=== PATIENT | female | born 1970 | race Hispanic/Latino ===

== ENCOUNTER 2017-11-30 10:02 | Outpatient (RCR) | payer BC ==
[~2017-11-30 10:02] MED LIST: DOXYCYCLINE HY100 MG PO; RISPERDAL0.25 MG PO
== END 2017-12-01 ==
LOC: PT 10:02
PROVIDERS: ATTEND Specialist
DX: S46.022D Laceration of muscle(s) and tendon(s) of the rotator cuff of left shoulder, subsequent encounter (principal); S46.021D Laceration of muscle(s) and tendon(s) of the rotator cuff of right shoulder, subsequent encounter; M25.512 Pain in left shoulder; M25.511 Pain in right shoulder; M62.81 Muscle weakness (generalized)

== ENCOUNTER 2017-12-08 08:58 | Outpatient (RCR) | payer BC | END 2018-01-01 | LOC: PT 08:58 | PROVIDERS: ATTEND Specialist | DX: S46.022A Laceration of muscle(s) and tendon(s) of the rotator cuff of left shoulder, initial encounter (principal); S46.021A Laceration of muscle(s) and tendon(s) of the rotator cuff of right shoulder, initial encounter ==

== ENCOUNTER 2018-07-18 07:36 | Emergency (ER) | payer BC ==
[~2018-07-18] VITALS: Ht 165.1 cm; Wt 77.1 kg
--- NOTE | 2018-07-18 08:18 | Diagnostic Imaging Report ---
PROCEDURE:ANKLE 3VIEW LT - HOPD COMPARISON:None. INDICATIONS:pt twisted ankle/foot exercising FINDINGS: No acute, displaced fracture or dislocation. Tibial plafond and talar dome are intact. Ankle mortise is maintained. Fragment along the medial malleolus may represent a remote avulsion injury. There is a healed fracture deformity of the distal tibial diaphysis.. Degenerative plantar calcaneal spur. No focal soft tissue abnormalities. CONCLUSION: Posttraumatic changes of the distal tibial diaphysis and medial malleolus. No acute osseous abnormality. Dictated by: Chilo Duke M.D. on 07/18/2018 at 8:27 Electronically approved by: Chilo Duke M.D. on 07/18/2018 at 8:27
--- NOTE | 2018-07-18 08:20 | Diagnostic Imaging Report ---
PROCEDURE:FOOT 3 VIEW LT - HOPD COMPARISON:None. INDICATIONS:pt twisted ankle/foot exercising FINDINGS:No acute, displaced fracture or dislocation. Appropriate alignment between the medial cuneiform and second metatarsal base in keeping with an intact Lisfranc ligament. Joint spaces are well-maintained. Mild soft tissue swelling about the forefoot. Degenerative plantar calcaneal spur. Partially visualized post traumatic deformity of the distal tibial diaphysis. CONCLUSION: Soft tissue swelling of the mid foot without acute underlying osseous abnormality. Dictated by: Chilo Duke M.D. on 07/18/2018 at 8:29 Electronically approved by: Chilo Duke M.D. on 07/18/2018 at 8:29
[2018-07-18 08:56] VITALS: BP 111/67
--- OUTSIDE RECORDS SUMMARY | 2018-07-19 14:17 | XMS REPORT | Continuity of Care Document ---
Author Author [facility] Interface Address Unknown Phone Unavailable Problems Problem Status Onset Date Classification Date Reported Comments Source 625.9 - FEM GENITAL SYM Active 05/31/2015 [facility] V76.12 - SCREEN MAMMOGRA Active 02/02/2015 [facility] SCREENING Active 01/23/2015 [facility] M25.50 Active 10/04/2000 [facility] Pain Active Problem 11/16/2016 [facility] Subdural hematoma Active Problem 11/16/2016 [facility] Medications Medication Details Route Status Patient Instructions Ordering Provider Order Date Source Allergies, Adverse Reactions, Alerts Substance Category Reaction Severity Reaction type Status Date Reported Comments Source Immunizations Immunization Date Given Site Status Last Updated Comments Source Results Order Name Results Value Reference Range Date Interpretation Comments Source Knee 1-2 Views Bilateral DX Knee 1-2 Views Bilateral DX Clinical history: Pain. Sex: Female. : 1970. Technique: 2 standing views of the bilateral knees. Findings: Right knee: The knee joint is adequate. The patellofemoral joint is normal. There is no suprapatellar bursal articular effusion. There is no fracture or dislocation. No destructive lesion. Left knee: The knee joint is slightly narrowed medially. The patellofemoral joint is normal. There is no suprapatellar bursal articular effusion. There is no fracture or dislocation. No destructive lesion. Impression: 1. Slight left knee joint narrowing otherwise unremarkable. 11/13/2016 - - Read by: Trenton Pearce MD Dictated Date/time: 11/13/16 15:51 Electronically Signed by: Trenton Pearce MD 11/13/16 15:52 FINAL REPORT [facility] Digital Mammo Screening Krystyna MA Digital Mammo Screening Krystyna MA - DIGITAL MAMMO SCREENING KRYSTYNA MA BILATERAL [facility] DIGITAL SCREENING MAMMOGRAM WITH CAD: 02/02/2015 CLINICAL: Routine Routine Screening, Baseline exam. Current study was evaluated with a Computer Aided Detection (CAD) system. There are no comparison films available as this is the patient's baseline mammogram. There are scattered fibroglandular densities in both breasts. There are benign calcifications in the left breast. No significant masses, calcifications, or other findings are seen in either breast. IMPRESSION: BENIGN There is no mammographic evidence of malignancy. A screening mammogram in one year is recommended. Whitney nolant/penrad:02/04/2015 07:54:20 Registered Nurse Supervisor: Sherri Valladares, [facility] This exam was dictated and interpreted by [id number] for [facility]. letter sent: Normal exam Mammogram BI-RADS: 2 Benign 02/02/2015 - - Read by: Whitney Leyva MD Dictated Date/time: 02/04/15 07:54 Electronically Signed by: Whitney Leyva MD 02/04/15 07:54 FINAL REPORT [facility] Vital Signs Vital Sign Value Date Comments Source Encounters Location Location Details Encounter Type Encounter Number Reason For Visit Attending Provider ADM Date DC Date Status Source [facility] Outpatient [id number] Watson Sari 02/02/2015 02/03/2015 [facility] Outpatient [id number] Bo Coleman 11/13/2016 11/14/2016 [facility] Procedures Procedure Code Date Perfomer Comments Source
--- OUTSIDE RECORDS SUMMARY | 2018-07-19 14:17 | XMS REPORT | Summary of Care ---
Author Organization Unknown Address Unknown Phone Unavailable Encounter [facility] Encntr_aliwally(ARMOND) [id number] Date(s): 02/02/15 - 02/02/15 [facility] [address] [place] [address]- Discharge Disposition: Home Physician Attending: Watson Guo MD Physician_Referring: Watson Guo MD Vital Signs No data available for this section Problem List Condition Effective Dates Status Health Status Informant Pain(Confirmed) Active Subdural Active hematoma(Confirmed) Allergies, Adverse Reactions, Alerts Substance Reaction Severity Status NKDA Active Medications No data available for this section Results No data available for this section Immunizations No data available for this section Procedures No data available for this section Social History Social History Type Response Assessment and Plan No data available for this section
--- OUTSIDE RECORDS SUMMARY | 2018-07-19 14:17 | XMS REPORT | Summary of Care ---
Author Author [facility] Organization [facility] Address Unknown Phone Unavailable Encounter [facility] Encntr_alias(FIN) [id number] Date(s): 11/13/16 - 11/13/[address] [address]- Discharge Disposition: Home or Self Care Attending Physician: Bo Coleman MD Admitting Physician: Bo Coleman MD Vital Signs No data available for [...]
== END 2018-07-18 09:03 | disposition home or self-care (01) ==
LOC: FSED 07:36
DX: M25.572 Pain in left ankle and joints of left foot (principal); S93.402A Sprain of unspecified ligament of left ankle, initial encounter; S93.602A Unspecified sprain of left foot, initial encounter; X50.1XXA Overexertion from prolonged static or awkward postures, initial encounter; Y93.55 Activity, bike riding; Y92.008 Other place in unspecified non-institutional (private) residence as the place of occurrence of the external cause; F41.9 Anxiety disorder, unspecified
CPT/HCPCS: 99283